=== PATIENT | female | born 1950 | race Hispanic/Latino ===

== ENCOUNTER 2016-12-28 22:20 | Inpatient (IN) | payer BC ==
[2016-12-28] MEDS ORDERED: Sodium Chloride 0.9% 1,000 ML IV STA (22:42)
--- NOTE | 2016-12-28 22:51 | ED PDOC ---
Arrival/HPI - General Chief Complaint: GI Problem Time Seen by Provider: 12/28/16 22:22 Historian: Patient - History of Present Illness Narrative History of Present Illness (Text): 12/28/16 22:48 Homa Cr is a 66 year old female who presents to the emergency department complaining of nausea and vomiting since earlier today. States that symptoms presented after eating at fast food restaurant. Denies any abdominal pain. Denies any fever, chills, headache, dizziness, chest pain, shortness of breath, urinary symptoms, or any other complaints at this time. 12/29/16 05:44 Time/Duration: Other (today ) Symptom Onset: Gradual Symptom Course: Unchanged Severity Level: Mild Activities at Onset: Light Past Medical History - Provider Review Nursing Documentation Reviewed: Yes - Infectious Disease Hx of Infectious Diseases: None - Cardiac Hx Hypertension: Yes Other/Comment: Palpitations - Endocrine/Metabolic Hx Diabetes Mellitus Type 2: Yes - Musculoskeletal/Rheumatological Hx Osteoporosis: Yes - Gastrointestinal Hx Gastroesophageal Reflux: Yes - Psychiatric Hx Substance Use: No - Surgical History Hx Cholecystectomy: Yes Hx Hysterectomy: Yes Hx Tonsillectomy: Yes - Anesthesia Hx Anesthesia: Yes Hx Anesthesia Reactions: No Hx Malignant Hyperthermia: No Family/Social History - Physician Review Nursing Documentation Reviewed: Yes Family/Social History: No Known Family HX Smoking Status: Never Smoked Hx Alcohol Use: No Hx Substance Use: No Allergies/Home Meds Allergies/Adverse Reactions: Allergies No Known Allergies Allergy (Verified 12/28/16 22:28) Home Medications: Home Meds Medication Instructions Recorded Confirmed Alendronate [Fosamax] 1 tab PO Q7D 12/28/16 12/28/16 Aspirin [Aspirin Chewable] 1 tab PO DAILY 12/28/16 12/28/16 Digoxin [Lanoxin] 1 tab PO DAILY 12/28/16 12/28/16 Ergocalciferol [Drisdol 50,000 1 cap PO Q7D 12/28/16 12/28/16 Intl Units Cap] Esomeprazole Magnesium [Nexium] 1 cap PO DAILY 12/28/16 12/28/16 Fenofibrate [Tricor] 1 tab PO DAILY 12/28/16 12/28/16 Lisinopril [Zestril] 1 tab PO DAILY 12/28/16 12/28/16 Pravastatin Sodium [Pravachol] 1 tab PO HS 12/28/16 12/28/16 Propranolol [Inderal LA] 1 cap PO DAILY 12/28/16 12/28/16 amLODIPine [Norvasc] 1 tab PO DAILY 12/28/16 12/28/16 metFORMIN [glucOPHAGE] 1 tab PO BID 12/28/16 12/28/16 Review of Systems - Physician Review All systems were reviewed & negative as marked: Yes - Review of Systems Constitutional: Normal. absent: Fatigue, Fevers Respiratory: Normal. absent: SOB, Cough, Sputum Cardiovascular: Normal. absent: Chest Pain, Palpitations Gastrointestinal: Nausea, Vomiting. absent: Abdominal Pain, Diarrhea Musculoskeletal: Normal Neurological: Normal. absent: Headache, Dizziness Hemo/Lymphatic: Normal Physical Exam Vital Signs Reviewed: Yes Vital Signs Temp Pulse Resp BP Pulse Ox 12/29/16 02:15 123 H 16 114/88 99 12/29/16 01:59 121 H 113/70 12/29/16 01:25 132 H 106/83 12/29/16 00:30 143 H 16 124/84 3 L 12/28/16 22:32 98.7 F 114 H 18 132/82 99 Temperature: Afebrile Blood Pressure: Normal Pulse: Tachycardic Respiratory Rate: Normal Appearance: Positive for: Well-Appearing, Non-Toxic, Comfortable Pain Distress: None Mental Status: Positive for: Alert and Oriented X 3 Finger Stick Blood Glucose: 217 - Systems Exam Head: Present: Atraumatic, Normocephalic Pupils: Present: PERRL Conjunctiva: Present: Normal Respiratory/Chest: Present: Clear to Auscultation, Good Air Exchange. No: Respiratory Distress, Accessory Muscle Use Cardiovascular: Present: Regular Rate and Rhythm, Normal S1, S2, Tachycardic. No: Murmurs Abdomen: Present: Normal Bowel Sounds. No: Tenderness, Distention, Peritoneal Signs Upper Extremity: Present: Normal Inspection. No: Cyanosis, Edema Lower Extremity: Present: Normal Inspection. No: Edema Neurological: Present: GCS=15, CN II-XII Intact, Speech Normal, Motor Func Grossly Intact, Normal Sensory Function Skin: Present: Warm, Dry, Normal Color. No: Rashes Psychiatric: Present: Alert, Oriented x 3, Normal Insight, Normal Concentration Medical Decision Making ED Course and Treatment: 12/28/16 22:51 Impression:A 66 year old female who presents to the emergency department complaining of nausea and vomiting since earlier today. Plan: -- EKG -- Labs, cardiac enzymes -- Antivert -- IV fluids -- Zofran -- Urine culture -- Urinalysis -- Reassess and disposition Progress Notes: 12/29/16 00:40 EKG reviewed by me: A-fib @ 126 bpm. [t developed tachycardia , ekg showed a fibe rate 125 tx with cardizem pt will go to tele 12/29/16 00:[address] Garza who is aware and agrees with the plan to admit patient to telemetry for new onset a-fib. Accepts patient under his service. 12/29/16 05:45 - Lab Interpretations Lab Results: 12/28/16 23:05 12/28/16 23:05 Lab Results 12/28/16 23:05: Sodium 137, Potassium 3.6, Chloride 101, Carbon Dioxide 21, Anion Gap 19, BUN 11, Creatinine 0.5, Est GFR ( Amer) > 60, Est GFR (Non- Af Amer) > 60, Random Glucose 229 H, Calcium 9.4, Total Bilirubin 0.7, AST 33, ALT 38, Alkaline Phosphatase 35 L, Lactate Dehydrogenase 473, Total Creatine Kinase 58, Troponin I < 0.01, Total Protein 8.0, Albumin 4.6, Globulin 3.4, Albumin/Globulin Ratio 1.4, Amylase 54, Lipase 52 12/28/16 23:05: PT 11.4, INR 1.06, APTT 24.2 12/28/16 23:05: WBC 9.9, RBC 4.59, Hgb 13.0, Hct 38.6, MCV 84.1, MCH 28.3, MCHC 33.7, RDW 14.8 H, Plt Count 287, MPV 10.8, Gran % 81.5 H, Lymph % (Auto) 13.9 L , Desha % (Auto) 2.4, Eos % (Auto) 1.6, Baso % (Auto) 0.6, Gran # 8.02 H, Lymph # 1.4, Desha # 0.2, Eos # 0.2, Baso # 0.06 I have reviewed the lab results: Yes - RAD Interpretation Radiology Orders: 12/29/16 00:32 CHEST PORTABLE [RAD] Stat - EKG Interpretation Interpreted by ED Physician: Yes Type: 12 lead EKG - Medication Orders Current Medication Orders: Acetaminophen (Tylenol 325mg Tab) 650 mg PO Q4H PRN PRN Reason: Pain, Mild (1-3) Sodium Chloride (Sodium Chloride 0.9%) 1,000 mls @ 100 mls/hr IV .Q10H STA Stop: 12/29/16 08:41 Last Admin: 12/28/16 23:06 Dose: 100 mls/hr diltiaZEM IVPB 100mg in NS (Cardizem 100mg In Ns) 100 mls @ 5 mls/hr IV .Q20H PRN; Protocol; 5 MG/HR PRN Reason: TITRATE PER MD ORDER Last Admin: 12/29/16 01:59 Dose: 5 mg/hr, 5 mls/hr Heparin Sodium/Dextrose (Heparin 25,000 Units/250ml In D5w) 25,000 units in 250 mls @ 13.064 mls/hr IV .Q19H9M PRN; Protocol; 18 UNITS/KG/HR PRN Reason: ADJUST RATE PER PROTOCOL Last Admin: 12/29/16 02:13 Dose: 18 units/kg/hr, 13.064 mls/hr Insulin Human Regular (Humulin R Low) 0 units SC ACHS RADHA PRN Reason: Protocol Discontinued Medications Diltiazem HCl (Cardizem) 20 mg IVP STAT STA Stop: 12/29/16 00:33 Last Admin: 12/29/16 01:25 Dose: 20 mg Heparin Sodium (Porcine) (Heparin) 4,000 units IV ONCE ONE PRN Reason: Protocol Stop: 12/29/16 00:50 Last Admin: 12/29/16 01:42 Dose: 4,000 units Meclizine HCl (Antivert) 25 mg PO STAT STA Stop: 12/28/16 22:44 Last Admin: 12/28/16 23:06 Dose: 25 mg Meclizine HCl (Antivert) 25 mg PO STAT STA Stop: 12/29/16 03:07 Last Admin: 12/29/16 03:22 Dose: 25 mg Ondansetron HCl (Zofran Inj) 4 mg IVP STAT STA Stop: 12/28/16 22:43 Last Admin: 12/28/16 23:06 Dose: 4 mg - Scribe Statement The provider has reviewed the documentation as recorded by the Brendaibe Aniceto Tadeo Provider Attestation: Provider Brendaibseamus Attestation: All medical record entries made by the Lauryn were at my direction and personally dictated by me. I have reviewed the chart and agree that the record accurately reflects my personal performance of the history, physical exam, medical decision making, and the department course for this patient. I have also personally directed, reviewed, and agree with the discharge instructions and disposition. Disposition/Present on Arrival - Present on Arrival Any Indicators Present on Arrival: No History of DVT/PE: No History of Uncontrolled Diabetes: No Urinary Catheter: No History of Decub. Ulcer: No History Surgical Site Infection Following: None - Disposition Have Diagnosis and Disposition been Completed?: Yes Diagnosis: Atrial fibrillation with RVR Disposition: HOSPITALIZED Disposition Time: 00:55 Patient Problems: Current Active Problems Problem Status Onset Atrial fibrillation with RVR Acute Condition: GOOD
[2016-12-28 23:46] LABS: BASO # 0.06 K/mm3 (0.0-2.0); BASO % 0.6 % (0.0-3.0); EOS # 0.2 (0.0-0.7); EOS % 1.6 % (1.5-5.0); GRAN # 8.02 (1.4-6.5); GRAN % 81.5 % (50.0-68.0); LYMPH # 1.4 (1.2-3.4); LYMPH % 13.9 % (22.0-35.0); MEAN CELL VOLUME 84.1 fL (80.0-105.0); MEAN CORPUSCULAR HEMOGLOBIN 28.3 pg (25.0-35.0); MEAN CORPUSCULAR HGB CONC 33.7 g/dl (31.0-37.0); MEAN PLATELET VOLUME 10.8 fl (7.0-11.0); MONO # 0.2 (0.1-0.6); MONO % 2.4 % (1.0-6.0); PLATELET COUNT 287 10^3/uL (120.0-450.0); RBC 4.59 10^6/uL (3.5-6.1); RED CELL DISTRIBUTION WIDTH 14.8 % (11.5-14.5); WHITE BLOOD COUNT 9.9 10^3/ul (4.5-11.0)
[2016-12-28 23:53] LABS: INR 1.06 (0.93-1.08); PARTIAL THROMBOPLASTIN TIME 24.2 Seconds (23.7-30.8); PROTHROMBIN TIME 11.4 Seconds (9.9-11.8)
[2016-12-28 23:58] LABS: ALB/GLOB RATIO 1.4 (1.1-1.8); ALBUMIN 4.6 g/dL (3.0-4.8); ALT/SGPT 38 U/L (7-56); AMYLASE 54 U/L (35-125); AST/SGOT 33 U/L (15-39); BLOOD UREA NITROGEN 11 mg/dL (7-21); CALCIUM 9.4 mg/dL (8.4-10.5); GFR AFRICAN-AMERICAN > 60; GFR NON-AFRICAN AMERICAN > 60; LIPASE 52 U/L (23-300)
[2016-12-29 00:14] LABS: TROPONIN I < 0.01 ng/mL
[2016-12-29] MEDS ORDERED: diltiaZEM IVPB 100mg in NS 100 ML IV PRN (00:32)
[2016-12-29] MEDS ORDERED: Heparin 25,000units in D5W 25,000 UNITS/250 ML BAG IV PRN ×2 (00:49→01:59)
[2016-12-29 03:00] VITALS: BMI 30.2
--- NOTE | 2016-12-29 03:06 | CP.PCM.PN ---
Subjective - Date & Time of Evaluation Date of Evaluation: 12/29/16 Time of Evaluation: 03:05 - Subjective Subjective: Patient was seen at bedside because she complained of nausea and dizziness. Has no other complaints. She received meclizine and zofran at 10:42 PM as per nurse. She is on cardizem drip and heparin. She states that she has nausea because she has atrial fibrillation. Has no other complaints now. Denies chest pain, sob. Medical record was reviewed. This 66 year old woman was admitted with nausea, vomiting, atrial fibrillation with RVR. Has PMH of DM, HTN, HLD, osteoporosis, GERD, hystrectomy. Nausea, dizziness. meclizine + zofran. 10:42 cardizem + heparin [id number] afib 98.3 91 % RA Objective - Vital Signs/Intake and Output Vital Signs (last 24 hours): Temp Pulse Resp BP Pulse Ox 98.3 F 101 H 18 108/70 99 12/29/16 02:47 12/29/16 02:47 12/29/16 02:47 12/29/16 02:47 12/29/16 02:15 - Medications Medications: Current Medications Acetaminophen (Tylenol 325mg Tab) 650 mg PO Q4H PRN PRN Reason: Pain, Mild (1-3) Sodium Chloride (Sodium Chloride 0.9%) 1,000 mls @ 100 mls/hr IV .Q10H STA Stop: 12/29/16 08:41 Last Admin: 12/28/16 23:06 Dose: 100 mls/hr diltiaZEM IVPB 100mg in NS (Cardizem 100mg In Ns) 100 mls @ 5 mls/hr IV .Q20H PRN; Protocol; 5 MG/HR PRN Reason: TITRATE PER MD ORDER Last Admin: 12/29/16 01:59 Dose: 5 mg/hr, 5 mls/hr Heparin Sodium/Dextrose (Heparin 25,000 Units/250ml In D5w) 25,000 units in 250 mls @ 13.064 mls/hr IV .Q19H9M PRN; Protocol; 18 UNITS/KG/HR PRN Reason: ADJUST RATE PER PROTOCOL Last Admin: 12/29/16 02:13 Dose: 18 units/kg/hr, 13.064 mls/hr Insulin Human Regular (Humulin R Low) 0 units SC ACHS RADHA PRN Reason: Protocol - Labs Labs: PT 11.4 Seconds (9.9-11.8) 12/28/16 23:05 INR 1.06 (0.93-1.08) 12/28/16 23:05 APTT 24.2 Seconds (23.7-30.8) 12/28/16 23:05 - Constitutional Appears: Well, No Acute Distress - Head Exam Head Exam: ATRAUMATIC, NORMAL INSPECTION, NORMOCEPHALIC - Eye Exam Eye Exam: Normal appearance - ENT Exam ENT Exam: Normal External Ear Exam - Neck Exam Neck Exam: Normal Inspection - Respiratory Exam Respiratory Exam: NORMAL BREATHING PATTERN - Cardiovascular Exam Cardiovascular Exam: absent: JVD - GI/Abdominal Exam GI & Abdominal Exam: absent: Distended - Rectal Exam Rectal Exam: Deferred - Exam Additional comments: Deferred. - Extremities Exam Extremities Exam: Normal Inspection - Back Exam Back Exam: NORMAL INSPECTION - Neurological Exam Neurological Exam: Alert, Oriented x3 - Psychiatric Exam Psychiatric exam: Normal Affect, Normal Mood - Skin Skin Exam: Normal Color Assessment and Plan - Assessment and Plan (Free Text) Assessment: Nausea/Vomiting. Dizziness. New onset atrial fibrillation with RVR. HTN. DM. HLD. GERD. Osteoporosis. Plan: Meclizine 25 mg po stat. Continue present management.
[2016-12-29 06:18] VITALS: RESP 20
--- NOTE | 2016-12-29 07:08 | RAD ---
HISTORY: cp COMPARISON: No prior. FINDINGS: LUNGS: No active pulmonary disease. PLEURA: No significant pleural effusion identified, no pneumothorax apparent. CARDIOVASCULAR: Mild cardiomegaly. Top-normal pulmonary vasculature OSSEOUS STRUCTURES: Thoracic spondylosis. Bilateral shoulder arthrosis. Right calcific rotator cuff tendinopathy versus calcific bursitis VISUALIZED UPPER ABDOMEN: Normal. OTHER FINDINGS: None. IMPRESSION: Mild cardiomegaly- chronicity unknown. Top-normal pulmonary vasculature
--- NOTE | 2016-12-29 07:49 | CP.PCM.HP ---
<Nataly De La Fuente - Last Filed: 12/29/16 10:03> History of Present Illness - History of Present Illness History of Present Illness: CC: Nausea and dizziness. Patient is a 66 y/o with pmh of htn, NIDDM2 presenting with nausea and vomiting which started after eating at a fastfood restaurant. Patient states she vomited multiple times, non bilious, non bloody, along with dizziness. Patient admits to feeling like the room is pinning, denies photophobia, denies tinnitus. Patient denies headache. Patient didn't try any medications at home to alleviate the symptoms. Patient states this is the first time she's feeling like this. Patient admits to palpitations, and epigastric pain. Patient denies dysurea, denies diarrhea. Denies fever or chills. Patient denies history of CAD , PA and CVA. In the ED, patient was suspected to have RVR afib, and was admitted to tele floor for the management. PMH: HTN, NIDDM2, PSH: partial hysterectomy and cholecystectomy Social: Denies alcohol, tobacco or drugs. Patient lives with family, babysits her grandson, walks unassisted. Present on Admission - Present on Admission Any Indicators Present on Admission: No History of DVT/PE: No History of Uncontrolled Diabetes: No Urinary Catheter: No Decubitus Ulcer Present: No Review of Systems - Review of Systems All systems: reviewed and no additional remarkable complaints except Review of Systems: All 12 point ROS reviewed, all negative except as per HPI. Past Patient History - Infectious Disease Hx of Infectious Diseases: None - Tetanus Immunizations Tetanus Immunization: Unknown - Past Social History Smoking Status: Never Smoked Alcohol: None Drugs: Denies Home Situation {Lives}: With Family - CARDIAC Hx Hypertension: Yes Other/Comment: Palpitations - ENDOCRINE/METABOLIC Hx Diabetes Mellitus Type 2: Yes - MUSCULOSKELETAL/RHEUMATOLOGICAL Hx Osteoporosis: Yes - GASTROINTESTINAL Hx Gastroesophageal Reflux: Yes - PSYCHIATRIC Hx Substance Use: No - SURGICAL HISTORY Hx Cholecystectomy: Yes Hx Hysterectomy: Yes Hx Tonsillectomy: Yes - ANESTHESIA Hx Anesthesia: Yes Hx Anesthesia Reactions: No Hx Malignant Hyperthermia: No Meds Allergies/Adverse Reactions: Allergies Allergy/AdvReac Type Severity Reaction Status Date / Time No Known Allergies Allergy Verified 12/28/16 22:28 Physical Exam - Constitutional Appears: No Acute Distress - Head Exam Head Exam: ATRAUMATIC, NORMAL INSPECTION, NORMOCEPHALIC - Eye Exam Eye Exam: EOMI, Normal appearance, PERRL. absent: Nystagmus, Scleral icterus Pupil Exam: NORMAL ACCOMODATION, PERRL - ENT Exam ENT Exam: Mucous Membranes Moist - Neck Exam Neck exam: Positive for: Normal Inspection. Negative for: Lymphadenopathy, Meningismus - Respiratory Exam Respiratory Exam: Clear to Auscultation Bilateral, NORMAL BREATHING PATTERN. absent: Rales, Rhonchi, Wheezes, Respiratory Distress, Stridor - Cardiovascular Exam Cardiovascular Exam: Tachycardia, Irregular Rhythm, +S1, +S2 - GI/Abdominal Exam GI & Abdominal Exam: Normal Bowel Sounds, Soft. absent: Distended, Guarding, Hernia, Tenderness - Extremities Exam Extremities exam: Positive for: normal inspection. Negative for: pedal edema - Back Exam Back exam: NORMAL INSPECTION - Neurological Exam Neurological exam: Alert, CN II-XII Intact, Oriented x3, Reflexes Normal - Psychiatric Exam Psychiatric exam: Anxious - Skin Skin Exam: Dry, Intact, Warm Results - Vital Signs Recent Vital Signs: Last Vital Signs Temp 97.9 F 12/29/16 06:00 Pulse 110 H 12/29/16 06:00 Resp 20 12/29/16 06:00 BP 125/87 12/29/16 06:00 Pulse Ox 95 12/29/16 06:00 - Labs Result Diagrams: 12/29/16 07:45 12/29/16 07:45 Assessment & Plan - Assessment and Plan (Free Text) Assessment: 1) New onset RVR Afib 2) Vertigo 3) Hypokalemia 4) htn 5) NIDDM2 6) Dyslipidemia Plan: On therapeutic lovenox and cardizem drip. Po cardizem to be started this AM. Patient is also on digoxin. Lipid panel, TSH, and cardiac echo pending. Will resume asa, lipitor, tricor, and lisinopril for dyslipidemia and htn. On meclizine for dizziness. CT head pending. Will replete potassium. ISS for DM. Cardiology consulted. Patient seen, examined, and case discussed with Dr Garza. - Date & Time Date: 12/29/16 Time: 07:40 <Georges Garza - Last Filed: 12/29/16 19:40> Results - Vital Signs Recent Vital Signs: Last Vital Signs Temp 98.4 F 12/29/16 17:29 Pulse 77 12/29/16 17:29 Resp 20 12/29/16 17:29 BP 111/65 12/29/16 17:29 Pulse Ox 95 12/29/16 06:00 - Labs Result Diagrams: 12/29/16 07:45 12/29/16 07:45 Labs: Laboratory Results - last 24 hr 12/29/16 12/29/16 12/29/16 07:45 07:45 07:45 WBC 9.3 RBC 4.21 Hgb 11.8 L Hct 35.3 L MCV 83.8 MCH 28.0 MCHC 33.4 RDW 14.8 H Plt Count 289 MPV 10.4 Sodium 136 Potassium 3.3 L Chloride 104 Carbon Dioxide 23 Anion Gap 12 BUN 9 Creatinine 0.5 Est GFR ( Amer) > 60 Est GFR (Non-Af Amer) > 60 Random Glucose 132 H Calcium 8.5 Total Bilirubin 0.4 AST 21 ALT 34 Alkaline Phosphatase 28 L Troponin I 0.02 D Total Protein 6.3 Albumin 3.6 Globulin 2.8 Albumin/Globulin Ratio 1.3 Triglycerides 235 H Cholesterol 165 LDL Cholesterol Direct 101 HDL Cholesterol 44 TSH 3rd Generation 0.48 Assessment & Plan - Assessment and Plan (Free Text) Plan: Pt seen and examined. Resident note reviewed and agree with. Spoke to Dr Alcazar about plan of care. CT ordered for evaluation for dizziness. Meds and labs reviewed.
[2016-12-29 08:14] LABS: HEMOGLOBIN 11.8 gm/dL (12.0-16.0); MEAN CELL VOLUME 83.8 fL (80.0-105.0); MEAN CORPUSCULAR HGB CONC 33.4 g/dl (31.0-37.0); MEAN PLATELET VOLUME 10.4 fl (7.0-11.0); RBC 4.21 10^6/uL (3.5-6.1); RED CELL DISTRIBUTION WIDTH 14.8 % (11.5-14.5); WHITE BLOOD COUNT 9.3 10^3/ul (4.5-11.0)
[2016-12-29 08:20] LABS: ALB/GLOB RATIO 1.3 (1.1-1.8); ALBUMIN 3.6 g/dL (3.0-4.8); ALT/SGPT 34 U/L (7-56); AST/SGOT 21 U/L (15-39); BLOOD UREA NITROGEN 9 mg/dL (7-21); CALCIUM 8.5 mg/dL (8.4-10.5); GFR AFRICAN-AMERICAN > 60; GFR NON-AFRICAN AMERICAN > 60; HDL CHOLESTEROL 44 mg/dL (29-60)
[2016-12-29 08:31] LABS: LDL CHOLESTEROL 101 mg/dL (0-129); TROPONIN I 0.02 ng/mL
[2016-12-29] MEDS: Insulin Reg-LOW-Coverage SC SCH ×4 (08:33→21:48)
--- NOTE | 2016-12-29 09:46 | CT ---
PROCEDURE: CT HEAD WITHOUT CONTRAST. HISTORY: dizziness COMPARISON: None available. TECHNIQUE: Axial computed tomography images were obtained through the head/brain without intravenous contrast. Radiation dose: Total exam DLP = 701 mGy-cm. This CT exam was performed using one or more of the following dose reduction techniques: Automated exposure control, adjustment of the mA and/or kV according to patient size, and/or use of iterative reconstruction technique. FINDINGS: HEMORRHAGE: No intracranial hemorrhage. BRAIN: No mass effect or edema. No atrophy or chronic microvascular ischemic changes. VENTRICLES: Unremarkable. No hydrocephalus. CALVARIUM: Unremarkable. PARANASAL SINUSES: Small left maxillary sinus retention cyst MASTOID AIR CELLS: Unremarkable as visualized. No inflammatory changes. OTHER FINDINGS: Bilateral vertebral atherosclerotic arterial calcifications IMPRESSION: No intracranial hemorrhage or mass effect. Bilateral vertebral atherosclerotic arterial vascular calcifications/ disease Small left maxillary sinus retention cyst.
[2016-12-29] MEDS ORDERED: Propranolol 60 mg ER Cap PO SCH (10:00)
[2016-12-29] MEDS ORDERED: Potassium Chloride 20 mEq ER Tab PO ONE (10:08)
[2016-12-29] MEDS: Enoxaparin 80 mg Syringe SC SCH ×2 (10:08→21:47)
--- NOTE | 2016-12-29 10:16 | CARD ---
APPROVED REPORT EXAM: Two-dimensional and M-mode echocardiogram with Doppler and color Doppler. INDICATION NEW A-FIB 2D DIMENSIONS Left Atrium (2D)4.6 (1.6-4.0cm)IVSd0.9 (0.7-1.1cm) LVDd4.9 (3.9-5.9cm)PWd1.1 (0.7-1.1cm) LVDs3.4 (2.5-4.0cm)FS (%) 29.3 % LVEF (%)55.9 (>50%) M-Mode DIMENSIONS Aortic Root3.00 (2.2-3.7cm)Aortic Cusp Exc.1.90 (1.5-2.0cm) Aortic Valve AoV Peak Dotlyazu022.0cm/Hermilo Peak GR.7mmHg Mitral Valve E/A ratio0.0 TDI E/Lateral E'0.0E/Medial E'0.0 Pulmonary Valve PV Peak Sxixxjxp89.8cm/sPV Peak Grad.3mmHg Tricuspid Valve TR Peak [id number]/sRAP [id number] Peak Gr.38mmHg [id number] LEFT VENTRICLE The left ventricle is normal size. There is normal left ventricular wall thickness. The left ventricular function is normal. The left ventricular ejection fraction is within the normal range. There is normal LV segmental wall motion. RIGHT VENTRICLE The right ventricle is normal size. The right ventricular systolic function is normal. ATRIA The left atrium is mildly dilated. The right atrium size is normal. The interatrial septum is intact with no evidence for an atrial septal defect. AORTIC VALVE The aortic valve is normal in structure. No aortic regurgitation is present. There is no aortic valvular stenosis. MITRAL VALVE Mitral annular calcification is mild. Mitral regurgitation is mild. TRICUSPID VALVE The tricuspid valve is normal in structure. There is moderate tricuspid regurgitation. PULMONIC VALVE The pulmonary valve is normal in structure. GREAT VESSELS The aortic root is normal in size. The IVC is normal in size and collapses >50% with inspiration. PERICARDIAL EFFUSION There is no pleural effusion. There is no pericardial effusion. <Conclusion> Dilated LA. Normal LV size and systolic function. Mild MR Moderate TR.
[2016-12-29] MEDS: diltiaZEM IVPB 100mg in NS 100 ML IV SCH ×2 (12:05→15:14)
[2016-12-29] MEDS ORDERED: Digoxin 125 mcg (0.125 mg) Tab PO SCH (14:00)
[2016-12-29] MEDS ORDERED: Sodium Chloride 0.9% 1,000 ML IV SCH (17:58)
--- NOTE | 2016-12-29 18:01 | CON ---
DATE: 12/29/2016 REQUESTING PHYSICIAN: Dr. Garza. REASON FOR CONSULTATION: Atrial fibrillation. HISTORY OF PRESENT ILLNESS: This is a 66-year-old woman with a history of hypertension, diabetes and hyperlipidemia who presents to the emergency room with complaints of nausea and vomiting for most of the day yesterday. In the emergency room, she is noted to be in atrial fibrillation and rapid ventricular response and started on intravenous diltiazem as well as IV heparin. She continues to have persistent nausea this morning. Her symptoms onset was relatively sudden. She denies any chest pain. She states she has had a longstanding history of palpations and has been maintained on Inderal for this for many years. She has never been on anticoagulation and is unclear if she had any evidence of documented atrial fibrillation in the past. PAST MEDICAL HISTORY: Notable for prior hysterectomy as well as cholecystectomy. She has history of gastroesophageal reflux disease and osteoporosis. MEDICATIONS AT HOME: Included Fosamax, aspirin, digoxin, vitamin D supplements, Nexium, Tricor, Zestril, pravastatin, propranolol, amlodipine and metformin. ALLERGIES: NONE. SOCIAL HISTORY: She does not smoke or drink. She is , lives with her . 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 FAMILY HISTORY: Her both parents are from age-related illness. REVIEW OF SYSTEMS: A 10-point review of systems is notable mainly from the problems mentioned above. PHYSICAL EXAMINATION: GENERAL: She is anxious appearing, middle-aged woman. VITAL SIGNS: Blood pressure is 118/70 with pulse of 100-110 and atrial fibrillation, respirations are 16. She is afebrile. HEENT: Normocephalic, and atraumatic. NECK: Supple. No JVD noted. CHEST: Clear to auscultation and percussion. HEART: PMI displaced laterally with an irregularly irregular rhythm and systolic murmur present at the low left sternal border. ABDOMEN: Soft and nontender. Normoactive bowel sounds. EXTREMITIES: No edema. SKIN: Warm and dry. PSYCHIATRIC: Normal mood and affect. NEUROLOGIC: Alert and oriented x3. No gross, motor, or sensory deficits. DIAGNOSTIC DATA: Two sets of cardiac enzymes were negative. Potassium is 3.3, BUN and creatinine are 9 and 0.5, glucose is 132, white count is 9.3, hemoglobin and hematocrit 11.8 and 35.3 with platelet of 289, 000. TSH is 0.48. Chest x-ray reveals borderline cardiac silhouette enlargement with clear lung gonzalez. Electrocardiogram reveals atrial fibrillation with rapid ventricular response and secondary ST-T changes. IMPRESSION: 1. Paroxysmal atrial fibrillation likely secondary to hypertensive/diabetic cardiomyopathy. 2. Nausea and vomiting, workup in progress. 3. Multiple cardiac risk factors given history of hypertension, diabetes and hyperlipidemia. RECOMMENDATIONS: Oral diltiazem has been initiated and digoxin will be continued for now. Diltiazem dose will be increased as needed for heart rate control. Continue chronic anticoagulation as appropriate. She has extensively elevated CHADS-VASc score of 3. An echocardiogram will be reviewed and diltiazem can be increased as needed for heart rate control. If this is not adequate beta-blockers therapy will be substituted. An eventual stress test is required given her cardiac risk factors. Oral anticougulation can be initiated as well in the interm. Thank for this consultation, we are happy to follow her through hospital course and arrange for outpatient followup as well. Evin Gupta MD [facility]
[2016-12-29] MEDS ORDERED: Pantoprazole 40 mg EC Tab PO STA (18:11)
[2016-12-30 00:35] VITALS: TEMP 98.6
[2016-12-30 05:37] LABS: HEMOGLOBIN 11.3 gm/dL (12.0-16.0); MEAN CELL VOLUME 84.9 fL (80.0-105.0); MEAN CORPUSCULAR HEMOGLOBIN 27.2 pg (25.0-35.0); MEAN PLATELET VOLUME 10.6 fl (7.0-11.0); RBC 4.16 10^6/uL (3.5-6.1); RED CELL DISTRIBUTION WIDTH 15.1 % (11.5-14.5); WHITE BLOOD COUNT 7.4 10^3/ul (4.5-11.0)
[2016-12-30 05:58] LABS: BLOOD UREA NITROGEN 10 mg/dL (7-21); CALCIUM 8.3 mg/dL (8.4-10.5); GFR AFRICAN-AMERICAN > 60; GFR NON-AFRICAN AMERICAN > 60
[2016-12-30 06:16] VITALS: BP 130/69; O2SAT 98
[2016-12-30] MEDS ORDERED: Potassium Chloride 20 mEq ER Tab PO SCH (08:00)
[2016-12-30] MEDS ORDERED: Potassium Chloride 10 mEq ER Tab PO ONE ×2 (08:29→11:00)
[2016-12-30] MEDS: Insulin Reg-LOW-Coverage SC SCH ×2 (08:38→12:06)
--- NOTE | 2016-12-30 08:45 | CP.PCM.PN ---
Subjective - Date & Time of Evaluation Date of Evaluation: 12/30/16 Time of Evaluation: 07:00 - Subjective Subjective: Stable on 2R. She feels better this AM with less nausea. No vomiting now, CP or SOB. She converted to RSR/SB yesterday. V/S noted: RSR/SB PE: Lungs: clear Cor.: S1S2 Abd.: soft Ext.: no edema Neuro.: alert Labs noted: K+= 3.1, TSH NL ECG: RSR, STTW changes Echo: Nl LV, Mild MR and mod. TR Objective - Vital Signs/Intake and Output Vital Signs (last 24 hours): Temp Pulse Resp BP Pulse Ox 98.6 F 84 20 130/69 98 12/30/16 06:00 12/30/16 06:00 12/30/16 06:00 12/30/16 06:00 12/30/16 06:00 Intake and Output: 12/30/16 12/30/16 06:59 18:59 Intake Total 965 Output Total 1 Balance 964 - Medications Medications: Current Medications Acetaminophen (Tylenol 325mg Tab) 650 mg PO Q4H PRN PRN Reason: Pain, Mild (1-3) Apixaban (Eliquis) 5 mg PO BID RADHA PRN Reason: Protocol Aspirin (Aspirin Chewable) 81 mg PO DAILY [facility] Last Admin: 12/29/16 10:09 Dose: 81 mg Atorvastatin Calcium (Lipitor) 10 mg PO HS [facility] Last Admin: 12/29/16 21:47 Dose: 10 mg Fenofibrate (Tricor) 145 mg PO DAILY [facility] Last Admin: 12/29/16 10:09 Dose: 145 mg Potassium Chloride 40 meq/ (Sodium Chloride) 1,020 mls @ 50 mls/hr IV .[id number] [facility] Last Admin: 12/29/16 21:09 Dose: 50 mls/hr Insulin Human Regular (Humulin R Low) 0 units SC ACHS [facility] PRN Reason: Protocol Last Admin: 12/29/16 21:48 Dose: Not Given Lisinopril (Zestril) 40 mg PO DAILY [facility] Last Admin: 12/29/16 10:09 Dose: 40 mg Meclizine HCl (Antivert) 25 mg PO Q6 PRN PRN Reason: Dizziness Last Admin: 12/29/16 08:03 Dose: 25 mg Ondansetron HCl (Zofran Inj) 4 mg IVP Q6H PRN PRN Reason: Nausea/Vomiting Last Admin: 12/29/16 13:41 Dose: 4 mg Pantoprazole Sodium (Protonix Ec Tab) 40 mg PO 0600 RADHA Potassium Chloride (Klor-Con 10) 30 meq PO ONCE ONE Stop: 12/30/16 11:01 - Labs Labs: 12/30/16 04:30 12/30/16 04:30 PT 11.4 Seconds (9.9-11.8) 12/28/16 23:05 INR 1.06 (0.93-1.08) 12/28/16 23:05 APTT 24.2 Seconds (23.7-30.8) 12/28/16 23:05 Assessment and Plan - Assessment and Plan (Free Text) Assessment: PAF Nausea, vomiting, lightheaded HBP HLD GERD Osteoporosis S/P Hysterectomy and cholecystectomy Plan: Continue Inderal LA, cardizem CQ 120/day Add Eliquis 5 BID No digoxin. Replace K+ OOB/Ambulate. D/C later today with out-pt stress test and cardiology F/U Case D/W Dr. Garza this AM.
[2016-12-30] MEDS: Enoxaparin 80 mg Syringe SC SCH (08:52)
--- NOTE | 2016-12-30 09:37 | CP.PCM.DIS ---
<LeisaNataly - Last Filed: 12/31/16 07:10> Provider - Provider Date of Admission: 12/29/16 00:52 Attending physician: Georges Garza MD Primary care physician: Andrew Mcintyre MD Consults: Cardiology: Dr Alicia Time Spent in preparation of Discharge (in minutes): 45 Diagnosis - Discharge Diagnosis (1) Atrial fibrillation with RVR Status: Resolved (2) Vertigo Status: Resolved (3) Hypokalemia Status: Resolved (4) Hypomagnesemia Status: Resolved (5) HTN (hypertension) Status: Chronic (6) Diabetes Status: Chronic (7) Dyslipidemia Status: Chronic Hospital Course - Lab Results Lab Results: Most Recent Lab Values WBC 7.4 10^3/ul (4.5-11.0) D 12/30/16 04:30 RBC 4.16 10^6/uL (3.5-6.1) 12/30/16 04:30 Hgb 11.3 gm/dL (12.0-16.0) L 12/30/16 04:30 Hct 35.3 % (36.0-48.0) L 12/30/16 04:30 MCV 84.9 fL (80.0-105.0) 12/30/16 04:30 MCH 27.2 pg (25.0-35.0) 12/30/16 04:30 MCHC 32.0 g/dl (31.0-37.0) 12/30/16 04:30 RDW 15.1 % (11.5-14.5) H 12/30/16 04:30 Plt Count 258 10^3/uL (120.0-450.0) 12/30/16 04:30 MPV 10.6 fl (7.0-11.0) 12/30/16 04:30 Gran % 81.5 % (50.0-68.0) H 12/28/16 23:05 Lymph % (Auto) 13.9 % (22.0-35.0) L 12/28/16 23:05 [place] % (Auto) 2.4 % (1.0-6.0) 12/28/16 23:05 Eos % (Auto) 1.6 % (1.5-5.0) 12/28/16 23:05 Baso % (Auto) 0.6 % (0.0-3.0) 12/28/16 23:05 Gran # 8.02 (1.4-6.5) H 12/28/16 23:05 Lymph # 1.4 (1.2-3.4) 12/28/16 23:05 [place] # 0.2 (0.1-0.6) 12/28/16 23:05 Eos # 0.2 (0.0-0.7) 12/28/16 23:05 Baso # 0.06 K/mm3 (0.0-2.0) 12/28/16 23:05 PT 11.4 Seconds (9.9-11.8) 12/28/16 23:05 INR 1.06 (0.93-1.08) 12/28/16 23:05 APTT 24.2 Seconds (23.7-30.8) 12/28/16 23:05 Sodium 141 mmol/L (132-148) 12/30/16 04:30 Potassium 3.1 mmol/L (3.6-5.0) L 12/30/16 04:30 Chloride 108 mmol/L (98-107) H 12/30/16 04:30 Carbon Dioxide 25 mmol/L (21-33) 12/30/16 04:30 Anion Gap 11 (10-20) 12/30/16 04:30 BUN 10 mg/dL (7-21) 12/30/16 04:30 Creatinine 0.7 mg/dL (0.5-1.4) 12/30/16 04:30 Est GFR ( Amer) > 60 12/30/16 04:30 Est GFR (Non-Af Amer) > 60 12/30/16 04:30 Random Glucose 98 mg/dL (70-110) 12/30/16 04:30 Calcium 8.3 mg/dL (8.4-10.5) L 12/30/16 04:30 Magnesium 1.6 mg/dL (1.7-2.2) L 12/30/16 04:30 Total Bilirubin 0.4 mg/dL (0.2-1.3) 12/29/16 07:45 AST 21 U/L (15-39) 12/29/16 07:45 ALT 34 U/L (7-56) 12/29/16 07:45 Alkaline Phosphatase 28 U/L (38-133) L 12/29/16 07:45 Lactate Dehydrogenase 473 U/L (333-699) 12/28/16 23:05 Total Creatine Kinase 58 U/L (35-230) 12/28/16 23:05 Troponin I 0.02 ng/mL D 12/29/16 07:45 Total Protein 6.3 g/dL (5.8-8.3) 12/29/16 07:45 Albumin 3.6 g/dL (3.0-4.8) 12/29/16 07:45 Globulin 2.8 gm/dL 12/29/16 07:45 Albumin/Globulin Ratio 1.3 (1.1-1.8) 12/29/16 07:45 Triglycerides 235 mg/dL (35-160) H 12/29/16 07:45 Cholesterol 165 mg/dL (130-200) 12/29/16 07:45 LDL Cholesterol Direct 101 mg/dL (0-129) 12/29/16 07:45 HDL Cholesterol 44 mg/dL (29-60) 12/29/16 07:45 Amylase 54 U/L (35-125) 12/28/16 23:05 Lipase 52 U/L (23-300) 12/28/16 23:05 TSH 3rd Generation 0.48 mIU/mL (0.46-4.68) 12/29/16 07:45 - Hospital Course Hospital Course: Patient is a 66 y/o with pmh of htn, NIDDM2 presented with nausea and vomiting after eating. In the ED patient was suspected to have RVR afib. Patient was admitted to [facility], and started on Cardizem drip, which was later switched to po Cardizem. Patient was also on digoxin. Patient's chads2 score was 2 for htn and DM, HASBLED score of zero. Echo revealed Mild MR, Mod TR, LVEF of 55.9% with LA enlargement. Patient was started on LMWH which was later switched to eliquis. Patient also c/o dizziness, nausea and vomiting, CT head negative for acute ischemic findings or mass, had vertebral atherosclerotic disease. Patient was treated with meclizine, and zofran. The vertigo and nausea resolved, nurses were able to observe patient ambulate unassisted without dizziness or fall. Furthermore, patient had electrolyte imbalances, and magnesium and potassium were all repleted. Patient is to be discharged home and to follow up with cardiology in 1 week. - Date & Time of H&P Date of H&P: 12/30/16 Time of H&P: 07:48 Discharge Exam - Head Exam Head Exam: ATRAUMATIC, NORMAL INSPECTION, NORMOCEPHALIC - Eye Exam Eye Exam: EOMI, Normal appearance, PERRL. absent: Scleral icterus Pupil Exam: NORMAL ACCOMODATION, PERRL - Respiratory Exam Respiratory Exam: Clear to PA & Lateral, NORMAL BREATHING PATTERN, UNREMARKABLE. absent: Rales, Rhonchi, Wheezes, Respiratory Distress, Stridor - Cardiovascular Exam Cardiovascular Exam: Irregular Rhythm, +S1, +S2. absent: Bradycardia, Tachycardia, Systolic Murmur - GI/Abdominal Exam GI & Abdominal Exam: Normal Bowel Sounds, Unremarkable. absent: Distended, Firm , Soft, Tenderness - Extremities Exam Extremities exam: normal inspection - Back Exam Back exam: NORMAL INSPECTION - Neurological Exam Neurological exam: Alert, CN II-XII Intact, Oriented x3, Reflexes Normal - Psychiatric Exam Psychiatric exam: Normal Affect, Normal Mood - Skin Skin Exam: Dry, Intact, Normal Color, Warm Discharge Plan - Discharge Medications Prescriptions: Apixaban [Eliquis] 5 mg PO BID #60 tab - Follow Up Plan Condition: GOOD Disposition: HOME/ ROUTINE Instructions: Diltiazem (By mouth), Apixaban (By mouth), Atrial Fibrillation ( DC) Additional Instructions: 1.f/u with Dr. Alicia in one week 2. f/u with primary MD in one week 3. Take eliquis as prescribed. Pt seen and examined by me. Note of resident reviewed. Rx written and pt will f/ u with Dr Alicia. Meds and labs reviewed. - Georges Bailey MD Referrals: Andrew Mcintyre MD [Primary Care Provider] - <Georges Garza - Last Filed: 12/31/16 08:52> Provider - Provider Date of Admission: 12/29/16 00:52 Attending physician: Georges Garza MD Primary care physician: Andrew Mcintyre MD Hospital Course - Lab Results Lab Results: Most Recent Lab Values WBC 7.4 10^3/ul (4.5-11.0) D 12/30/16 04:30 RBC 4.16 10^6/uL (3.5-6.1) 12/30/16 04:30 Hgb 11.3 gm/dL (12.0-16.0) L 12/30/16 04:30 Hct 35.3 % (36.0-48.0) L 12/30/16 04:30 MCV 84.9 fL (80.0-105.0) 12/30/16 04:30 MCH 27.2 pg (25.0-35.0) 12/30/16 04:30 MCHC 32.0 g/dl (31.0-37.0) 12/30/16 04:30 RDW 15.1 % (11.5-14.5) H 12/30/16 04:30 Plt Count 258 10^3/uL (120.0-450.0) 12/30/16 04:30 MPV 10.6 fl (7.0-11.0) 12/30/16 04:30 Gran % 81.5 % (50.0-68.0) H 12/28/16 23:05 Lymph % (Auto) 13.9 % (22.0-35.0) L 12/28/16 23:05 [place] % (Auto) 2.4 % (1.0-6.0) 12/28/16 23:05 Eos % (Auto) 1.6 % (1.5-5.0) 12/28/16 23:05 Baso % (Auto) 0.6 % (0.0-3.0) 12/28/16 23:05 Gran # 8.02 (1.4-6.5) H 12/28/16 23:05 Lymph # 1.4 (1.2-3.4) 12/28/16 23:05 [place] # 0.2 (0.1-0.6) 12/28/16 23:05 Eos # 0.2 (0.0-0.7) 12/28/16 23:05 Baso # 0.06 K/mm3 (0.0-2.0) 12/28/16 23:05 PT 11.4 Seconds (9.9-11.8) 12/28/16 23:05 INR 1.06 (0.93-1.08) 12/28/16 23:05 APTT 24.2 Seconds (23.7-30.8) 12/28/16 23:05 Sodium 141 mmol/L (132-148) 12/30/16 04:30 Potassium 3.1 mmol/L (3.6-5.0) L 12/30/16 04:30 Chloride 108 mmol/L (98-107) H 12/30/16 04:30 Carbon Dioxide 25 mmol/L (21-33) 12/30/16 04:30 Anion Gap 11 (10-20) 12/30/16 04:30 BUN 10 mg/dL (7-21) 12/30/16 04:30 Creatinine 0.7 mg/dL (0.5-1.4) 12/30/16 04:30 Est GFR ( Amer) > 60 12/30/16 04:30 Est GFR (Non-Af Amer) > 60 12/30/16 04:30 POC Glucose (mg/dL) 148 mg/dL (65-110) H 12/30/16 11:47 Random Glucose 98 mg/dL (70-110) 12/30/16 04:30 Calcium 8.3 mg/dL (8.4-10.5) L 12/30/16 04:30 Magnesium 1.6 mg/dL (1.7-2.2) L 12/30/16 04:30 Total Bilirubin 0.4 mg/dL (0.2-1.3) 12/29/16 07:45 AST 21 U/L (15-39) 12/29/16 07:45 ALT 34 U/L (7-56) 12/29/16 07:45 Alkaline Phosphatase 28 U/L (38-133) L 12/29/16 07:45 Lactate Dehydrogenase 473 U/L (333-699) 12/28/16 23:05 Total Creatine Kinase 58 U/L (35-230) 12/28/16 23:05 Troponin I 0.02 ng/mL D 12/29/16 07:45 Total Protein 6.3 g/dL (5.8-8.3) 12/29/16 07:45 Albumin 3.6 g/dL (3.0-4.8) 12/29/16 07:45 Globulin 2.8 gm/dL 12/29/16 07:45 Albumin/Globulin Ratio 1.3 (1.1-1.8) 12/29/16 07:45 Triglycerides 235 mg/dL (35-160) H 12/29/16 07:45 Cholesterol 165 mg/dL (130-200) 12/29/16 07:45 LDL Cholesterol Direct 101 mg/dL (0-129) 12/29/16 07:45 HDL Cholesterol 44 mg/dL (29-60) 12/29/16 07:45 Amylase 54 U/L (35-125) 12/28/16 23:05 Lipase 52 U/L (23-300) 12/28/16 23:05 TSH 3rd Generation 0.48 mIU/mL (0.46-4.68) 12/29/16 07:45
[2016-12-30] MEDS ORDERED: Magnesium Oxide 400 mg Tab UD PO STA (09:38)
--- NOTE | 2016-12-30 09:45 | CARD ---
APPROVED REPORT EKG Measurement Heart [id number] <Conclusion> Atrial fibrillation with rapid ventricular response ST & T wave abnormality c.w ischemia LVH IVCD Q in 3
[2016-12-30] MEDS ORDERED: diltiaZEM 120 mg/24 Hours CD Cap PO SCH (10:00)
--- NOTE | 2016-12-30 10:01 | CARD ---
APPROVED REPORT EKG Measurement Heart [id number] <Conclusion> Sinus rhythm with marked sinus arrhythmia, new Left ventricular hypertrophy Q in 3 STTW changes c/w ischemia
[2016-12-30 12:19] VITALS: PULSE 81
[2016-12-30] MEDS ORDERED: Pantoprazole 40 mg EC Tab PO SCH (18:02)
--- NOTE | 2016-12-30 18:51 | CON ---
GI CONSULT Seen and examined at the bedside earlier today. Chart was reviewed. REQUEST FOR CONSULT: Nausea. HISTORY OF PRESENT ILLNESS: This is a 66-year-old female with a past medical history of diabetes mellitus type 2 and hypertension, came to the emergency room with complaints of nausea and vomiting which started after eating [employer]. The patient had multiple episodes of vomiting which was nonbloody and nonbilious but also complained of dizziness. She came to the emergency room for further evaluation and found to have rapid ventricular response and atrial fibrillation. Yesterday, the patient complained of nausea and vomiting, was unable to tolerate any oral intake. The patient is on Nexium at home, denies any previous symptoms prior to admission. This morning, she is eating breakfast and denies any more symptoms of nausea and vomiting. No abdominal pain. Her last endoscopy was at least 5 to 10 years ago and does not recall any acute findings. Denies ever having colonoscopy. No complaints of any weight loss, loss of appetite, change in bowel habits, or any of her GI bleeds. PAST MEDICAL HISTORY: As stated above, hypertension, [id number] diabetes type 2. SURGICAL HISTORY: She had a cholecystectomy and hysterectomy. FAMILY HISTORY: Noncontributory at this time. SOCIAL HISTORY: Denies alcohol, EtOH or substance abuse. MEDICATIONS: Reviewed as per MAR. ALLERGIES: NO KNOWN DRUG ALLERGIES. REVIEW OF SYSTEMS: Systems reviewed with positive findings. See HPI. IMAGING: She had a CT scan of the head and that was negative for any intracranial hemorrhage, no atrophy or chronic microvascular changes, just noted a small left maxillary sinus retention cyst. Chest x-ray shows mild cardiomegaly, negative for any pleural effusion, no pneumothorax, or active pulmonary disease. PHYSICAL EXAMINATION: VITAL SIGNS: Temperature is 98.6, blood pressure is 130/69, pulse rate is 81, respirations are 20, 98 on room air. HEENT: Sclerae are anicteric. NECK: Supple. CARDIAC: S1 and S2. LUNGS: Sounds are clear. ABDOMEN: Bowel sounds soft. Not distended, nontender on palpation. No rebound or guarding or organomegaly. EXTREMITIES: Positive pedal pulses. No edema. NEUROLOGIC: Awake, alert and oriented. LABS: For today, WBC 7.4, H and H is 11.3 and 35.3, this mean study, platelets are 258. PT on admission on 12/28/2016 is 11.4. INR is 1.06. PTT 24.2. Sodium today is 141, potassium is 3.1, chloride 108, BUN is 10, creatinine 0.7, mag is 1.6. LFTs on 12/29 were within normal limits. Her triglyceride yesterday is 235, troponin was negative x2. TSH is 0.48 and amylase and lipase on admission were within normal limits. ASSESSMENT: This is a 66-year-old female with a past medical history of diabetes mellitus type 2, hypertension, came to the emergency room with complaints of nausea vomiting as well as dizziness. The patient with atrial fibrillation with RVR. We started on Cardizem drip, converted to sinus bradycardia, is now off. The patient complained of nausea and vomiting which is now resolved. The patient has been on nursing home PPI. Her last endoscopy was at least 5 years ago. The patient is also hypokalemic. PLAN: Continue PPI. The patient is also on aspirin and has been started on Eliquis. The patient will likely be discharged home today. Discussed outpatient followup and optimal . The patient follows up with Dr. Mcintyre outpatient. Thank you for this consult and for allowing me to participate in your patient's care. The patient was seen and case discussed with Dr. Moreland. JENNIFER Chappell
== END 2016-12-30 14:10 | disposition home or self-care (01) | DRG 310 ==
LOC: ED 22:20 → ERH 12-29 00:52 → 2RNO 12-29 02:24
PROVIDERS: ADMIT Internal Medicine Nephrology; ATTEND Internal Medicine Nephrology
DX: I48.0 Paroxysmal atrial fibrillation (principal); E83.42 Hypomagnesemia; I11.9 Hypertensive heart disease without heart failure; E87.6 Hypokalemia; E11.9 Type 2 diabetes mellitus without complications; E78.5 Hyperlipidemia, unspecified; K21.9 Gastro-esophageal reflux disease without esophagitis; M81.0 Age-related osteoporosis without current pathological fracture; R11.2 Nausea with vomiting, unspecified; R42 Dizziness and giddiness; Z79.84 Long term (current) use of oral hypoglycemic drugs; Z79.82 Long term (current) use of aspirin